=== PATIENT | male | born 1950 | race American Indian/Alaskan Native ===

== ENCOUNTER 2022-04-10 10:21 | Day surgery (SDC) | payer OTHER ==
[~2022-04-10] VITALS: Ht 165.1 cm; Wt 69.8 kg
[~2022-04-10 10:21] MED LIST: ABILIFY MYCITE10 M2 PO; ARTIFICIAL TEA1 EAC6 BOTHEYES; ATOR20 PO; BUPROPION XL450 MG PO; DIPH50 PO; MIRT15 PO; NAPR500ERA PO; PRED20 PO; RANI150 PO; SILD50TA PO; ZYRTEC10 M3 PO
--- NOTE | 2022-04-10 12:07 | NUR ---
Ambulatory in Day Surgery. History, Chart, Medications and Allergies reviewed before start of procedure.Lungs clear T/O to Auscultation. Patient confirms NPO status and agrees with scheduled surgery. Pre-Op teaching done. Pt verbalizes understanding.
--- NOTE | 2022-04-10 18:31 | NUR ---
SHIFT SUMMARY: POD 0 RIGHT TKA PATIENT IS A&OX4. VS ARE WNL AND IS ON RA. PATIENT IS STILL REPORTING NUMBNESS TO HIS LEGS BUT IS ABLE TO MOVE THEM NOW. DENIES PAIN AT THIS TIME BUT HAS BEEN GIVEN SCHEDULED TYLENOL AND TORADOL TO MANAGE INFLAMMATION. RIGHT KNEE HAS 2 AQUACELS THAT ARE C/D/I. HE IS TOLERATING PO INTAKE. IS AT BEDSIDE. CALL LIGHT WITHIN REACH.
[2022-04-11 04:32] LABS: BASOPHILS ABSOLUTE AUTO 0.01 K/mm3 (0.00-0.23); BASOPHILS PERCENT AUTO 0 % (0-2); EOSINOPHILS ABSOLUTE AUTO 0.08 K/mm3 (0.00-0.68); EOSINOPHILS PERCENT AUTO 1 % (0-6); Hematocrit 39.1 % (37.0-53.0); Hemoglobin 13.6 g/dL (13.5-17.5); IMMATURE GRAN ABSOLUTE AUTO 0.02 K/mm3 (0.00-0.10); IMMATURE GRAN PERCENT AUTO 0 % (0-1); LYMPHOCYTES PERCENT AUTO 26 % (21-46); MONOCYTES ABSOLUTE AUTO 0.84 K/mm3 (0.16-1.47); MONOCYTES PERCENT AUTO 13 % (4-13); Mean Corpuscular HGB 32.2 pg (26.0-34.0); Mean Corpuscular HGB Conc 34.8 g/dL (31.5-36.5); Mean Corpuscular Volume 92 fL (80-100); Mean Platelet Volume 9.8 fL (9.1-12.4); NEUTROPHILS ABSOLUTE AUTO 3.87 K/mm3 (1.96-9.15); NEUTROPHILS PERCENT AUTO 59 % (41-73); Platelet Count 237 K/mm3 (150-400); RDW Coefficient Variation 13.1 % (11.7-14.2); RDW Standard Deviation 44.8 fL (35.1-46.3); Red Blood Cell Count 4.23 M/mm3 (4.30-5.90); White Blood Cell Count 6.52 K/mm3 (4.00-11.30)
--- NOTE | 2022-04-11 05:06 | NUR ---
POD1 RIGHT TKA. SENSATION AND CIRCULATION REMAIN INTACT IN RLE. AQUACEL DRESSING IS C/D/I. VSS. PT SLEPT ON AND OFF T/O THE NIGHT. MEDICATED FOR PAIN WITH PRN AND SCHEDULED. CRYO REMAINS IN PLACE. PT AMBULATED TO THE BATHROOM TO VOID MULTIPLE TIMES. PT TOLLERATING PO INTAKE W/O N/V. PLAN FOR PT TO WORK WITH PT TODAY AND D/C HOME. NO ACUTE EVENTS NOTED. THE PATIENT IS RESTING IN RECLINER, IN NO DISTRESS, CALL LIGHT IN REACH
[2022-04-11 07:03] LABS: Bun/Creatinine Ratio 13.5 (12.0-20.0); Calcium, Blood 9.1 mg/dL (8.5-10.1); Creatinine, Blood 1.11 mg/dL (0.60-1.20); Magnesium, Blood 2.4 mg/dL (1.6-2.4)
[2022-04-11] MEDS ORDERED: ACET500 PO (09:10)
[2022-04-11] MEDS ORDERED: OXAYDO5 M1 PO (09:10)
--- NOTE | 2022-04-11 10:19 | NUR ---
DISCHARGE SUMMARY POD1 R TKA, A/OX4, VSS, TOLERATING PO, AMBULATING WELL c FWW/GB, AQUACELL C/D/I, IV ACCESS REMOVED. DISCUSSED DISCHARGE INFORMATION WITH THE PATIENT INCLUDING HOME CARE, MEDICATIONS, FOLLOW UP APPOINTMENTS, AND CONTACT INFORMATION FOR ASKING QUESTIONS SHOULD ANY COME UP. PROVIDED PATIENT WITH EXTRA AQUACELLS FOR CHANGING AT HOME. PT ESCORTED OUT VIA WC WITH ALL PERSONAL POSSESSIONS TO GO HOME.
== END 2022-04-11 09:54 | disposition home or self-care (01) ==
LOC: ORSCMMR 10:21 → ORD 12:30 → SURS 16:46 → ORSCMMR 04-11 09:54
PROVIDERS: Orthopaedic Surgery
PROC: 8E0Y0CZ Robotic Assisted Procedure of Lower Extremity, Open Approach (ICD-10-PCS; principal; 2022-04-10 12:30)
PROC: 0SRC0JA Replacement of Right Knee Joint with Synthetic Substitute, Uncemented, Open Approach (ICD-10-PCS; principal; 2022-04-10 12:30)
DX: M17.11 Unilateral primary osteoarthritis, right knee (principal); Z87.891 Personal history of nicotine dependence; F32.A Depression, unspecified; Z79.899 Other long term (current) drug therapy
CPT/HCPCS: 27447; 0055T; S2900; 36415; 73560-RT; 80048; 83735; 85025; 97110; 97116; 97162; 97530; A9270; C1776; J0171; J0690; J0735; J1100; J1885; J2250; J2370; J2405; J2704; J2795; J3010; J7050; J7120